=== PATIENT | female | born 1950 | race Caucasian/White ===

== ENCOUNTER 2021-06-11 17:48 | Inpatient (IN) ==
[2021-06-11] MEDS ORDERED: Naloxone 0.4 MG/ML INJ IVP PRN (21:43)
[2021-06-11] MEDS ORDERED: Acetaminophen 325 MG TABLET PO PRN (21:43)
[2021-06-11] MEDS ORDERED: Ketorolac 15 MG/ML VIAL IVP PRN (23:13)
[2021-06-11 23:50] LABS: Adenovirus Not Detected (Not Detect); Bordetella Pertussis Not Detected (Not Detect); Chlamydophila pneumoniae Not Detected (Not Detect); Coronavirus 229E Not Detected (Not Detect); Coronavirus HKU1 Not Detected (Not Detect); Coronavirus NL63 Not Detected (Not Detect); Coronavirus OC43 Not Detected (Not Detect); Human Metapneumovirus Not Detected (Not Detect); Human Rhinovirus/Enterovirus Not Detected (Not Detect); Influenza A Subtype 2009 H1 Not Detected (Not Detect); Influenza B Not Detected (Not Detect); Mycoplasma pneumoniae Not Detected (Not Detect); Parainfluenza Virus 1 Not Detected (Not Detect); Parainfluenza Virus 2 Not Detected (Not Detect); Parainfluenza Virus 3 Not Detected (Not Detect); Parainfluenza Virus 4 Not Detected (Not Detect); Respiratory Syncytial Virus Not Detected (Not Detect)
[2021-06-11 23:51] LABS: SARS-CoV-2 DETECTED (Not Detect)
[2021-06-12 02:48] LABS: Basophils % 0.5 %; Hematocrit 41.6 % (35.3-44.9); Hemoglobin 13.8 g/dL (11.5-15.4); Immature Granulocytes % 1.8 % (0-4); Lymphocytes % 22.1 %; Mean Corpuscular HGB Conc 33.2 g/dL (31.6-35.5); Mean Corpuscular Volume 90.4 fL (83.0-100.0); Mean Platelet Volume 11.7 fL (9.4-12.4); Monocytes # 0.4 K/mcL (0.0-1.3); Monocytes % 9.3 %; Neutrophils # 2.9 K/mcL (1.6-8.9); Platelet Count 195 K/mcL (140-400); Red Cell Distribution Width 13.4 % (11.5-14.5); Segmented Neutrophils % 66.3 %; White Blood Count 4.4 K/mcL (4.3-11.1)
[2021-06-12 03:10] LABS: Albumin 3.5 g/dL (3.5-5.7); Albumin/Globulin Ratio 1.3 (1.1-2.2); Bilirubin,Direct 0.4 mg/dL (0.0-0.2); Bilirubin,Indirect 0.2 mg/dL (0.0-1.0); Bilirubin,Total 0.6 mg/dL (0.3-1.0); Globulin 2.6 g/dL (2.4-3.5); Total Protein 6.1 g/dL (6.4-8.9)
[2021-06-12 03:26] LABS: Hepatitis B Surface Antigen Nonreactive (Nonreactive)
[2021-06-12 03:31] LABS: Platelet Estimate Normal (Normal); Poikilocytosis 1+ (Not Present)
[2021-06-12 03:38] LABS: Estimated Average Glucose 151 mg/dl; Hemoglobin A1C 6.9 %
[2021-06-12 03:41] LABS: BUN/Creatinine Ratio 44 (6-26); Blood Urea Nitrogen 33 mg/dL (8-23); C-Reactive Protein 41 mg/L (Less than 10); Calcium 7.9 mg/dL (8.6-10.3); Carbon Dioxide 13 mEq/L (23-29); Chloride 107 mEq/L (98-107); Cholesterol 123 mg/dL (< 200); Ferritin > 1500 ng/mL (10-120); Glucose 175 mg/dL (70-105); HDL Cholesterol 31 mg/dL (40-59); LDL Cholesterol,Calculated 55 mg/dL (< 100); Lactate Dehydrogenase 687 Units/L (140-271); Magnesium 1.9 mg/dL (1.6-2.6); Osmolality,Calculated 294 (280-300); Potassium 3.6 mEq/L (3.5-5.1); Sodium 136 mEq/L (136-145); Thyroid Stimulating Hormone 0.837 mcIU/mL (0.340-5.600); Triglycerides 183 mg/dL (< 150); Troponin I 0.04 ng/mL (< 0.04); eGFR For African Americans > 60 (> 60); eGFR For Non-African Americans > 60 (> 60)
[2021-06-12 03:55] LABS: Hepatitis C Virus Antibody Nonreactive (Nonreactive)
[2021-06-12 03:58] LABS: Hepatitis B Core IgM Nonreactive (Nonreactive)
[2021-06-12 03:59] LABS: Hepatitis A Antibody IgM Nonreactive (Nonreactive)
[2021-06-12] MEDS: Gabapentin 300 MG CAPSULE PO SCH ×4 (09:24→21:20)
[2021-06-12] MEDS: lisinopriL 20 MG TABLET PO SCH ×2 (09:25)
[2021-06-12] MEDS: *HR* Enoxaparin 40 MG/0.4 ML SYRINGE SQ SCH (09:25)
[2021-06-12] MEDS: amLODIPine 5 MG TABLET PO SCH ×2 (09:25)
[2021-06-12] MEDS: cefTRIAXone 1,000 MG in 0.9 % Sodium Chloride Mini Bag 100 ML IVPB SCH (09:26)
[2021-06-12] MEDS: Azithromycin 500 MG in 0.9 % Sodium Chloride 250 ML IVPB SCH (09:26)
[2021-06-12] MEDS: Ondansetron 4 MG/2 ML VIAL IVP PRN (11:57)
[2021-06-13 02:27] LABS: Basophils % 0.2 %; Eosinophils % 0.1 %; Hematocrit 43.2 % (35.3-44.9); Hemoglobin 14.5 g/dL (11.5-15.4); Immature Granulocytes % 1.2 % (0-4); Lymphocytes # 1.2 K/mcL (0.6-4.6); Lymphocytes % 15.2 %; Mean Corpuscular HGB Conc 33.6 g/dL (31.6-35.5); Mean Corpuscular Hemoglobin 30.1 pg (28.0-33.3); Mean Corpuscular Volume 89.8 fL (83.0-100.0); Mean Platelet Volume 11.5 fL (9.4-12.4); Monocytes # 0.3 K/mcL (0.0-1.3); Monocytes % 3.9 %; Neutrophils # 6.4 K/mcL (1.6-8.9); Platelet Count 224 K/mcL (140-400); Red Blood Count 4.81 M/mcL (3.82-4.97); Red Cell Distribution Width 13.6 % (11.5-14.5); Segmented Neutrophils % 79.4 %
[2021-06-13 07:01] LABS: Alanine Aminotransferase 174 Units/L (7-52); Albumin 3.4 g/dL (3.5-5.7); Albumin/Globulin Ratio 1.5 (1.1-2.2); Alkaline Phosphatase 85 Units/L (34-104); Aspartate Amino Transferase 446 Units/L (13-39); BUN/Creatinine Ratio 37 (6-26); Bilirubin,Direct 0.3 mg/dL (0.0-0.2); Bilirubin,Indirect 0.4 mg/dL (0.0-1.0); Bilirubin,Total 0.7 mg/dL (0.3-1.0); Blood Urea Nitrogen 31 mg/dL (8-23); Calcium 8.4 mg/dL (8.6-10.3); Carbon Dioxide 17 mEq/L (23-29); Chloride 109 mEq/L (98-107); Globulin 2.2 g/dL (2.4-3.5); Glucose 152 mg/dL (70-105); Osmolality,Calculated 294 (280-300); Sodium 137 mEq/L (136-145); Total Protein 5.6 g/dL (6.4-8.9); eGFR For African Americans > 60 (> 60); eGFR For Non-African Americans > 60 (> 60)
[2021-06-13] MEDS ORDERED: Isovue-370 500 ML BOTTLE IVP ONE (07:39)
[2021-06-13] MEDS: lisinopriL 20 MG TABLET PO SCH (07:55)
[2021-06-13] MEDS: Gabapentin 300 MG CAPSULE PO SCH ×3 (07:55→21:11)
[2021-06-13] MEDS: amLODIPine 5 MG TABLET PO SCH (07:55)
[2021-06-13] MEDS: Aspirin Enteric Coated 81 MG Tablet PO SCH (07:55)
[2021-06-13] MEDS: *HR* Enoxaparin 40 MG/0.4 ML SYRINGE SQ SCH (07:56)
[2021-06-13] MEDS: cefTRIAXone 1,000 MG in 0.9 % Sodium Chloride Mini Bag 100 ML IVPB SCH (07:57)
[2021-06-13 07:58] LABS: Platelet Estimate Normal (Normal)
[2021-06-13] MEDS: Azithromycin 500 MG in 0.9 % Sodium Chloride 250 ML IVPB SCH (08:20)
[2021-06-13] MEDS ORDERED: Dexamethasone Sodium Phos/PF 10 MG/ML VIAL IVP SCH (09:00)
[2021-06-14] MEDS: *HR* Enoxaparin 40 MG/0.4 ML SYRINGE SQ SCH (08:56)
[2021-06-14] MEDS: amLODIPine 5 MG TABLET PO SCH (08:56)
[2021-06-14] MEDS: lisinopriL 20 MG TABLET PO SCH (08:57)
[2021-06-14] MEDS: Aspirin Enteric Coated 81 MG Tablet PO SCH (08:57)
[2021-06-14] MEDS: Gabapentin 300 MG CAPSULE PO SCH ×3 (08:57→20:33)
[2021-06-14] MEDS: Furosemide 20 MG/2 ML VIAL IVP SCH (08:58)
[2021-06-14] MEDS: Dexamethasone Sodium Phos/PF 10 MG/ML VIAL IVP SCH (08:58)
[2021-06-14] MEDS: cefTRIAXone 1,000 MG in 0.9 % Sodium Chloride Mini Bag 100 ML IVPB SCH (09:27)
[2021-06-14 09:47] LABS: Hematocrit 39.8 % (35.3-44.9); Hemoglobin 13.1 g/dL (11.5-15.4); Mean Corpuscular HGB Conc 32.9 g/dL (31.6-35.5); Mean Corpuscular Hemoglobin 29.2 pg (28.0-33.3); Mean Corpuscular Volume 88.6 fL (83.0-100.0); Mean Platelet Volume 11.9 fL (9.4-12.4); Platelet Count 255 K/mcL (140-400); Red Blood Count 4.49 M/mcL (3.82-4.97); Red Cell Distribution Width 13.8 % (11.5-14.5); White Blood Count 10.3 K/mcL (4.3-11.1)
[2021-06-14] MEDS ORDERED: 0.9 % Sodium Chloride Mini Bag 100 ML ONE (10:01)
[2021-06-14 10:05] LABS: BUN/Creatinine Ratio 36 (6-26); Blood Urea Nitrogen 31 mg/dL (8-23); C-Reactive Protein 104 mg/L (Less than 10); Calcium 8.7 mg/dL (8.6-10.3); Carbon Dioxide 20 mEq/L (23-29); Chloride 109 mEq/L (98-107); Glucose 174 mg/dL (70-105); Lactate Dehydrogenase 573 Units/L (140-271); Osmolality,Calculated 299 (280-300); Potassium 3.7 mEq/L (3.5-5.1); Sodium 139 mEq/L (136-145); eGFR For African Americans > 60 (> 60); eGFR For Non-African Americans > 60 (> 60)
[2021-06-14 10:24] LABS: Ferritin > 1500 ng/mL (10-120)
[2021-06-14] MEDS: Azithromycin 500 MG in 0.9 % Sodium Chloride 250 ML IVPB SCH (11:49)
[2021-06-15] MEDS: Gabapentin 300 MG CAPSULE PO SCH ×3 (10:40→21:31)
[2021-06-15] MEDS: Aspirin Enteric Coated 81 MG Tablet PO SCH (10:40)
[2021-06-15] MEDS: amLODIPine 5 MG TABLET PO SCH (10:40)
[2021-06-15] MEDS: *HR* Enoxaparin 40 MG/0.4 ML SYRINGE SQ SCH (10:41)
[2021-06-15] MEDS: lisinopriL 20 MG TABLET PO SCH (10:41)
[2021-06-15] MEDS ORDERED: Haloperidol Lactate 5 MG/ML VIAL IVP PRN (11:51)
[2021-06-15] MEDS: cefTRIAXone 1,000 MG in 0.9 % Sodium Chloride Mini Bag 100 ML IVPB SCH (14:43)
[2021-06-15] MEDS: Dexamethasone Sodium Phos/PF 10 MG/ML VIAL IVP SCH (14:44)
[2021-06-15] MEDS: Furosemide 20 MG/2 ML VIAL IVP SCH (14:44)
[2021-06-15] MEDS: Acetaminophen 325 MG TABLET PO PRN (14:47)
[2021-06-15] MEDS: Azithromycin 500 MG in 0.9 % Sodium Chloride 250 ML IVPB SCH (17:01)
[2021-06-16] MEDS: Acetaminophen 325 MG TABLET PO PRN (01:03)
[2021-06-16 01:31] LABS: Hematocrit 42.2 % (35.3-44.9); Mean Corpuscular HGB Conc 33.2 g/dL (31.6-35.5); Mean Corpuscular Hemoglobin 29.2 pg (28.0-33.3); Mean Corpuscular Volume 87.9 fL (83.0-100.0); Platelet Count 290 K/mcL (140-400); Red Cell Distribution Width 13.4 % (11.5-14.5); White Blood Count 12.6 K/mcL (4.3-11.1)
[2021-06-16 02:00] LABS: BUN/Creatinine Ratio 51 (6-26); Blood Urea Nitrogen 42 mg/dL (8-23); C-Reactive Protein 29 mg/L (Less than 10); Calcium 8.4 mg/dL (8.6-10.3); Carbon Dioxide 16 mEq/L (23-29); Chloride 108 mEq/L (98-107); Glucose 300 mg/dL (70-105); Magnesium 2.1 mg/dL (1.6-2.6); Osmolality,Calculated 310 (280-300); Phosphorous 4.5 mg/dL (2.7-4.5); Potassium 3.5 mEq/L (3.5-5.1); Sodium 139 mEq/L (136-145); eGFR For African Americans > 60 (> 60); eGFR For Non-African Americans > 60 (> 60)
[2021-06-16 02:07] LABS: Ferritin 1246 ng/mL (10-120)
[2021-06-16] MEDS: lisinopriL 20 MG TABLET PO SCH (08:18)
[2021-06-16] MEDS: Aspirin Enteric Coated 81 MG Tablet PO SCH (08:18)
[2021-06-16] MEDS: amLODIPine 5 MG TABLET PO SCH (08:18)
[2021-06-16] MEDS: Ergocalciferol (VIT D2) 50,000 UNIT (1.25MG) CAP PO SCH (08:19)
[2021-06-16] MEDS: Gabapentin 300 MG CAPSULE PO SCH ×3 (08:19→20:40)
[2021-06-16] MEDS: Dexamethasone Sodium Phos/PF 10 MG/ML VIAL IVP SCH (08:20)
[2021-06-16] MEDS: Furosemide 20 MG/2 ML VIAL IVP SCH (08:20)
[2021-06-16] MEDS: *HR* Enoxaparin 40 MG/0.4 ML SYRINGE SQ SCH (08:20)
[2021-06-16] MEDS: Azithromycin 500 MG in 0.9 % Sodium Chloride 250 ML IVPB SCH (08:21)
[2021-06-16] MEDS: cefTRIAXone 1,000 MG in 0.9 % Sodium Chloride Mini Bag 100 ML IVPB SCH (08:22)
[2021-06-16] MEDS ORDERED: *HR* Enoxaparin 40 MG/0.4 ML SYRINGE SQ SCH (21:00)
[2021-06-17 02:30] LABS: Basophils # 0.1 K/mcL (0.0-0.2); Basophils % 0.7 %; Hematocrit 43.1 % (35.3-44.9); Hemoglobin 14.2 g/dL (11.5-15.4); Immature Granulocytes % 5.7 % (0-4); Lymphocytes # 0.9 K/mcL (0.6-4.6); Lymphocytes % 6.7 %; Mean Corpuscular HGB Conc 32.9 g/dL (31.6-35.5); Mean Corpuscular Hemoglobin 28.9 pg (28.0-33.3); Mean Corpuscular Volume 87.6 fL (83.0-100.0); Mean Platelet Volume 11.8 fL (9.4-12.4); Monocytes # 0.5 K/mcL (0.0-1.3); Monocytes % 3.6 %; Neutrophils # 10.8 K/mcL (1.6-8.9); Platelet Count 288 K/mcL (140-400); Red Blood Count 4.92 M/mcL (3.82-4.97); Red Cell Distribution Width 13.3 % (11.5-14.5); Segmented Neutrophils % 83.3 %; White Blood Count 12.9 K/mcL (4.3-11.1)
[2021-06-17 02:47] LABS: Alanine Aminotransferase 77 Units/L (7-52); Albumin 3.2 g/dL (3.5-5.7); Albumin/Globulin Ratio 1.3 (1.1-2.2); Alkaline Phosphatase 79 Units/L (34-104); Aspartate Amino Transferase 66 Units/L (13-39); BUN/Creatinine Ratio 60 (6-26); Bilirubin,Total 0.4 mg/dL (0.3-1.0); Blood Urea Nitrogen 48 mg/dL (8-23); Calcium 8.4 mg/dL (8.6-10.3); Carbon Dioxide 18 mEq/L (23-29); Chloride 109 mEq/L (98-107); Globulin 2.4 g/dL (2.4-3.5); Glucose 294 mg/dL (70-105); Osmolality,Calculated 309 (280-300); Potassium 3.6 mEq/L (3.5-5.1); Sodium 138 mEq/L (136-145); Total Protein 5.6 g/dL (6.4-8.9); eGFR For African Americans > 60 (> 60); eGFR For Non-African Americans > 60 (> 60)
[2021-06-17 03:30] LABS: Platelet Estimate Normal (Normal); Reactive Lymphocytes Present (Not Present)
[2021-06-17] MEDS ORDERED: Isovue-370 500 ML BOTTLE IVP ONE (07:30)
[2021-06-17] MEDS: amLODIPine 5 MG TABLET PO SCH (09:24)
[2021-06-17] MEDS: Aspirin Enteric Coated 81 MG Tablet PO SCH (09:24)
[2021-06-17] MEDS: lisinopriL 20 MG TABLET PO SCH (09:25)
[2021-06-17] MEDS: Gabapentin 300 MG CAPSULE PO SCH ×3 (09:25→20:01)
[2021-06-17] MEDS: Furosemide 20 MG/2 ML VIAL IVP SCH (09:26)
[2021-06-17] MEDS: *HR* Enoxaparin 80 MG/0.8 ML SYRINGE SQ SCH ×2 (09:26→21:02)
[2021-06-17] MEDS: cefTRIAXone 1,000 MG in 0.9 % Sodium Chloride Mini Bag 100 ML IVPB SCH (09:27)
[2021-06-17] MEDS: Dexamethasone Sodium Phos/PF 10 MG/ML VIAL IVP SCH (09:27)
[2021-06-18 02:09] LABS: Hematocrit 44.7 % (35.3-44.9); Hemoglobin 14.3 g/dL (11.5-15.4); Mean Corpuscular Hemoglobin 29.6 pg (28.0-33.3); Mean Corpuscular Volume 92.5 fL (83.0-100.0); Platelet Count 200 K/mcL (140-400); Red Blood Count 4.83 M/mcL (3.82-4.97); Red Cell Distribution Width 13.9 % (11.5-14.5); White Blood Count 12.7 K/mcL (4.3-11.1)
[2021-06-18 06:28] LABS: BUN/Creatinine Ratio 66 (6-26); Blood Urea Nitrogen 56 mg/dL (8-23); Calcium 8.8 mg/dL (8.6-10.3); Carbon Dioxide 21 mEq/L (23-29); Chloride 105 mEq/L (98-107); Glucose 280 mg/dL (70-105); Magnesium 2.2 mg/dL (1.6-2.6); Osmolality,Calculated 314 (280-300); Phosphorous 4.8 mg/dL (2.7-4.5); Potassium 3.8 mEq/L (3.5-5.1); Sodium 139 mEq/L (136-145); eGFR For African Americans > 60 (> 60); eGFR For Non-African Americans > 60 (> 60)
[2021-06-18 06:43] LABS: Ferritin 564 ng/mL (10-120)
[2021-06-18] MEDS: cefTRIAXone 1,000 MG in 0.9 % Sodium Chloride Mini Bag 100 ML IVPB SCH (09:13)
[2021-06-18] MEDS: Furosemide 20 MG/2 ML VIAL IVP SCH (09:14)
[2021-06-18] MEDS: *HR* Enoxaparin 80 MG/0.8 ML SYRINGE SQ SCH ×2 (09:14→20:51)
[2021-06-18] MEDS: amLODIPine 5 MG TABLET PO SCH (09:14)
[2021-06-18] MEDS: Dexamethasone Sodium Phos/PF 10 MG/ML VIAL IVP SCH (09:14)
[2021-06-18] MEDS: Aspirin Enteric Coated 81 MG Tablet PO SCH (09:14)
[2021-06-18] MEDS: lisinopriL 20 MG TABLET PO SCH (09:15)
[2021-06-18] MEDS: Gabapentin 300 MG CAPSULE PO SCH ×3 (09:15→20:50)
[2021-06-18 11:17] LABS: C-Reactive Protein 86 mg/L (Less than 10)
[2021-06-18] MEDS ORDERED: Haloperidol Lactate 5 MG/ML VIAL IVP PRN (16:33)
[2021-06-18] MEDS ORDERED: Menthol 1 EACH LOZENGE PO PRN (17:44)
[2021-06-19 06:50] LABS: Basophils # 0.1 K/mcL (0.0-0.2); Basophils % 0.5 %; Eosinophils % 0.1 %; Hematocrit 44.8 % (35.3-44.9); Hemoglobin 14.7 g/dL (11.5-15.4); Immature Granulocytes % 4.6 % (0-4); Lymphocytes % 6.6 %; Mean Corpuscular HGB Conc 32.8 g/dL (31.6-35.5); Mean Corpuscular Hemoglobin 28.8 pg (28.0-33.3); Mean Corpuscular Volume 87.8 fL (83.0-100.0); Mean Platelet Volume 12.2 fL (9.4-12.4); Monocytes # 0.2 K/mcL (0.0-1.3); Monocytes % 1.3 %; Neutrophils # 12.9 K/mcL (1.6-8.9); Platelet Count 283 K/mcL (140-400); Red Cell Distribution Width 13.4 % (11.5-14.5); Segmented Neutrophils % 86.9 %; White Blood Count 14.8 K/mcL (4.3-11.1)
[2021-06-19 07:04] LABS: Alanine Aminotransferase 60 Units/L (7-52); Albumin 3.3 g/dL (3.5-5.7); Albumin/Globulin Ratio 1.1 (1.1-2.2); Alkaline Phosphatase 79 Units/L (34-104); Aspartate Amino Transferase 43 Units/L (13-39); BUN/Creatinine Ratio 77 (6-26); Bilirubin,Total 0.5 mg/dL (0.3-1.0); Blood Urea Nitrogen 62 mg/dL (8-23); Calcium 8.8 mg/dL (8.6-10.3); Carbon Dioxide 23 mEq/L (23-29); Chloride 105 mEq/L (98-107); Glucose 273 mg/dL (70-105); Lactate Dehydrogenase 714 Units/L (140-271); Osmolality,Calculated 315 (280-300); Potassium 3.6 mEq/L (3.5-5.1); Sodium 139 mEq/L (136-145); Total Protein 6.3 g/dL (6.4-8.9); eGFR For African Americans > 60 (> 60); eGFR For Non-African Americans > 60 (> 60)
[2021-06-19 08:41] LABS: Ferritin 880 ng/mL (10-120)
[2021-06-19] MEDS: lisinopriL 20 MG TABLET PO SCH (08:45)
[2021-06-19] MEDS: Gabapentin 300 MG CAPSULE PO SCH ×3 (08:45→20:50)
[2021-06-19] MEDS: Furosemide 20 MG/2 ML VIAL IVP SCH (08:45)
[2021-06-19] MEDS: amLODIPine 5 MG TABLET PO SCH (08:45)
[2021-06-19] MEDS: Aspirin Enteric Coated 81 MG Tablet PO SCH (08:45)
[2021-06-19] MEDS: *HR* Enoxaparin 80 MG/0.8 ML SYRINGE SQ SCH ×2 (09:20→21:08)
[2021-06-19] MEDS: Acetaminophen 325 MG TABLET PO PRN (13:27)
[2021-06-19] MEDS ORDERED: Dextrose Gel 15 GM/37.5 ML TUBE PO PRN ×2 (16:34)
[2021-06-19] MEDS ORDERED: D5% in Water 1,000 ML IVC PRN (16:34)
[2021-06-19] MEDS ORDERED: *HR* Dextrose 50 % in Water (Vial) 50 ML VIAL IVP PRN (16:37)
[2021-06-19] MEDS: Insulin LISPRO 300 UNITS/3 ML VIAL SUBQ SCH ×2 (18:33→20:50)
[2021-06-19] MEDS ORDERED: Insulin DETEMIR 100 UNIT/ML X5UNITS SUBQ ONE (23:12)
[2021-06-20 05:21] LABS: Basophils % 0.3 %; Eosinophils # 0.1 K/mcL (0.0-0.6); Eosinophils % 0.3 %; Hematocrit 46.6 % (35.3-44.9); Hemoglobin 15.8 g/dL (11.5-15.4); Immature Granulocytes % 3.8 % (0-4); Lymphocytes # 0.9 K/mcL (0.6-4.6); Lymphocytes % 5.9 %; Mean Corpuscular HGB Conc 33.9 g/dL (31.6-35.5); Mean Corpuscular Hemoglobin 29.8 pg (28.0-33.3); Mean Corpuscular Volume 87.8 fL (83.0-100.0); Mean Platelet Volume 11.8 fL (9.4-12.4); Monocytes # 0.1 K/mcL (0.0-1.3); Monocytes % 0.8 %; Platelet Count 341 K/mcL (140-400); Red Blood Count 5.31 M/mcL (3.82-4.97); Red Cell Distribution Width 13.4 % (11.5-14.5); Segmented Neutrophils % 88.9 %; White Blood Count 14.6 K/mcL (4.3-11.1)
[2021-06-20 05:46] LABS: Alanine Aminotransferase 53 Units/L (7-52); Albumin 3.5 g/dL (3.5-5.7); Alkaline Phosphatase 84 Units/L (34-104); Aspartate Amino Transferase 44 Units/L (13-39); BUN/Creatinine Ratio 74 (6-26); Bilirubin,Total 0.6 mg/dL (0.3-1.0); Blood Urea Nitrogen 58 mg/dL (8-23); Calcium 9.2 mg/dL (8.6-10.3); Carbon Dioxide 26 mEq/L (23-29); Chloride 103 mEq/L (98-107); Globulin 3.5 g/dL (2.4-3.5); Glucose 178 mg/dL (70-105); Osmolality,Calculated 311 (280-300); Potassium 3.4 mEq/L (3.5-5.1); Sodium 140 mEq/L (136-145); eGFR For African Americans > 60 (> 60); eGFR For Non-African Americans > 60 (> 60)
[2021-06-20] MEDS ORDERED: Insulin LISPRO 300 UNITS/3 ML VIAL SUBQ SCH (07:30)
[2021-06-20] MEDS: Aspirin Enteric Coated 81 MG Tablet PO SCH (08:22)
[2021-06-20] MEDS: lisinopriL 20 MG TABLET PO SCH (08:22)
[2021-06-20] MEDS: amLODIPine 5 MG TABLET PO SCH (08:23)
[2021-06-20] MEDS: Gabapentin 300 MG CAPSULE PO SCH ×3 (08:23→20:17)
[2021-06-20] MEDS: Furosemide 20 MG/2 ML VIAL IVP SCH ×2 (08:24→10:41)
[2021-06-20] MEDS: Insulin LISPRO 300 UNITS/3 ML VIAL SUBQ SCH ×4 (08:31→20:50)
[2021-06-20] MEDS: *HR* Enoxaparin 80 MG/0.8 ML SYRINGE SQ SCH ×2 (10:41→20:17)
[2021-06-21 06:00] LABS: Basophils # 0.1 K/mcL (0.0-0.2); Basophils % 0.4 %; Eosinophils # 0.1 K/mcL (0.0-0.6); Eosinophils % 0.7 %; Hematocrit 49.2 % (35.3-44.9); Hemoglobin 16.1 g/dL (11.5-15.4); Immature Granulocytes % 1.9 % (0-4); Lymphocytes # 0.8 K/mcL (0.6-4.6); Lymphocytes % 6.5 %; Mean Corpuscular HGB Conc 32.7 g/dL (31.6-35.5); Mean Corpuscular Hemoglobin 29.8 pg (28.0-33.3); Mean Corpuscular Volume 90.9 fL (83.0-100.0); Mean Platelet Volume 12.7 fL (9.4-12.4); Monocytes # 0.1 K/mcL (0.0-1.3); Monocytes % 0.9 %; Neutrophils # 10.9 K/mcL (1.6-8.9); Platelet Count 255 K/mcL (140-400); Red Blood Count 5.41 M/mcL (3.82-4.97); Red Cell Distribution Width 13.7 % (11.5-14.5); Segmented Neutrophils % 89.6 %; White Blood Count 12.1 K/mcL (4.3-11.1)
[2021-06-21 06:25] LABS: Alanine Aminotransferase 42 Units/L (7-52); Albumin 3.3 g/dL (3.5-5.7); Alkaline Phosphatase 80 Units/L (34-104); Aspartate Amino Transferase 40 Units/L (13-39); BUN/Creatinine Ratio 84 (6-26); Bilirubin,Total 0.5 mg/dL (0.3-1.0); Blood Urea Nitrogen 71 mg/dL (8-23); Calcium 9.3 mg/dL (8.6-10.3); Carbon Dioxide 21 mEq/L (23-29); Chloride 105 mEq/L (98-107); Globulin 3.4 g/dL (2.4-3.5); Glucose 133 mg/dL (70-105); Lactate Dehydrogenase 706 Units/L (140-271); Osmolality,Calculated 313 (280-300); Potassium 4.1 mEq/L (3.5-5.1); Sodium 140 mEq/L (136-145); Total Protein 6.7 g/dL (6.4-8.9); eGFR For African Americans > 60 (> 60); eGFR For Non-African Americans > 60 (> 60)
[2021-06-21 06:36] LABS: Ferritin 1135 ng/mL (10-120)
[2021-06-21] MEDS: Insulin LISPRO 300 UNITS/3 ML VIAL SUBQ SCH ×4 (07:32→21:30)
[2021-06-21] MEDS: Furosemide 20 MG/2 ML VIAL IVP SCH (08:39)
[2021-06-21] MEDS: amLODIPine 5 MG TABLET PO SCH (08:39)
[2021-06-21] MEDS: lisinopriL 20 MG TABLET PO SCH (08:39)
[2021-06-21] MEDS: Gabapentin 300 MG CAPSULE PO SCH ×3 (08:40→21:11)
[2021-06-21] MEDS: *HR* Enoxaparin 80 MG/0.8 ML SYRINGE SQ SCH ×2 (08:40→21:30)
[2021-06-21] MEDS: Aspirin Enteric Coated 81 MG Tablet PO SCH (08:40)
[2021-06-21] MEDS ORDERED: Dexmedetomidine HCl 400 MCG/100 ML MLS IVC SCH (09:30)
[2021-06-21] MEDS ORDERED: 0.9 % Sodium Chloride 250 ML IVC ONE ×2 (22:14→23:20)
[2021-06-22 01:52] LABS: Basophils % 0.3 %; Hematocrit 41.5 % (35.3-44.9); Immature Granulocytes % 1.2 % (0-4); Lymphocytes # 0.6 K/mcL (0.6-4.6); Mean Corpuscular HGB Conc 32.8 g/dL (31.6-35.5); Mean Corpuscular Hemoglobin 29.3 pg (28.0-33.3); Mean Corpuscular Volume 89.4 fL (83.0-100.0); Mean Platelet Volume 12.7 fL (9.4-12.4); Monocytes # 0.1 K/mcL (0.0-1.3); Neutrophils # 9.7 K/mcL (1.6-8.9); Platelet Count 251 K/mcL (140-400); Red Blood Count 4.64 M/mcL (3.82-4.97); Red Cell Distribution Width 13.5 % (11.5-14.5); Segmented Neutrophils % 91.5 %; White Blood Count 10.6 K/mcL (4.3-11.1)
[2021-06-22 02:00] LABS: Hemoglobin 13.6 g/dL (11.5-15.4)
[2021-06-22 02:05] LABS: Alanine Aminotransferase 31 Units/L (7-52); Albumin 2.8 g/dL (3.5-5.7); Alkaline Phosphatase 63 Units/L (34-104); Aspartate Amino Transferase 26 Units/L (13-39); BUN/Creatinine Ratio 99 (6-26); Bilirubin,Total 0.4 mg/dL (0.3-1.0); Blood Urea Nitrogen 83 mg/dL (8-23); Calcium 8.3 mg/dL (8.6-10.3); Carbon Dioxide 20 mEq/L (23-29); Chloride 109 mEq/L (98-107); Globulin 2.9 g/dL (2.4-3.5); Glucose 163 mg/dL (70-105); Osmolality,Calculated 319 (280-300); Potassium 3.9 mEq/L (3.5-5.1); Sodium 140 mEq/L (136-145); Total Protein 5.7 g/dL (6.4-8.9); eGFR For African Americans > 60 (> 60); eGFR For Non-African Americans > 60 (> 60)
[2021-06-22] MEDS: Aspirin Enteric Coated 81 MG Tablet PO SCH (07:57)
[2021-06-22] MEDS: Gabapentin 300 MG CAPSULE PO SCH ×3 (07:57→20:42)
[2021-06-22] MEDS: Insulin LISPRO 300 UNITS/3 ML VIAL SUBQ SCH ×4 (07:58→21:10)
[2021-06-22] MEDS: *HR* Enoxaparin 80 MG/0.8 ML SYRINGE SQ SCH ×2 (07:59→20:43)
[2021-06-22] MEDS ORDERED: *HR* LORazepam 2 MG/ML VIAL IVP ONE (12:00)
[2021-06-23 05:04] LABS: Basophils % 0.1 %; Eosinophils % 0.1 %; Hematocrit 43.5 % (35.3-44.9); Hemoglobin 14.1 g/dL (11.5-15.4); Immature Granulocytes % 1.5 % (0-4); Lymphocytes # 0.6 K/mcL (0.6-4.6); Mean Corpuscular HGB Conc 32.4 g/dL (31.6-35.5); Mean Corpuscular Hemoglobin 28.7 pg (28.0-33.3); Mean Corpuscular Volume 88.6 fL (83.0-100.0); Mean Platelet Volume 12.8 fL (9.4-12.4); Monocytes # 0.1 K/mcL (0.0-1.3); Neutrophils # 12.7 K/mcL (1.6-8.9); Platelet Count 304 K/mcL (140-400); Red Blood Count 4.91 M/mcL (3.82-4.97); Red Cell Distribution Width 13.4 % (11.5-14.5); Segmented Neutrophils % 93.3 %; White Blood Count 13.6 K/mcL (4.3-11.1)
[2021-06-23 05:26] LABS: Alanine Aminotransferase 36 Units/L (7-52); Alkaline Phosphatase 93 Units/L (34-104); Aspartate Amino Transferase 32 Units/L (13-39); BUN/Creatinine Ratio 100 (6-26); Bilirubin,Total 0.5 mg/dL (0.3-1.0); Blood Urea Nitrogen 64 mg/dL (8-23); Calcium 8.9 mg/dL (8.6-10.3); Carbon Dioxide 19 mEq/L (23-29); Chloride 105 mEq/L (98-107); Globulin 3.1 g/dL (2.4-3.5); Glucose 214 mg/dL (70-105); Lactate Dehydrogenase 645 Units/L (140-271); Osmolality,Calculated 305 (280-300); Potassium 4.3 mEq/L (3.5-5.1); Sodium 135 mEq/L (136-145); Total Protein 6.1 g/dL (6.4-8.9); eGFR For African Americans > 60 (> 60); eGFR For Non-African Americans > 60 (> 60)
[2021-06-23 05:41] LABS: Ferritin 1086 ng/mL (10-120)
[2021-06-23] MEDS: Insulin LISPRO 300 UNITS/3 ML VIAL SUBQ SCH ×4 (10:07→22:13)
[2021-06-23] MEDS: Gabapentin 300 MG CAPSULE PO SCH ×3 (10:49→20:36)
[2021-06-23] MEDS: Ergocalciferol (VIT D2) 50,000 UNIT (1.25MG) CAP PO SCH (10:49)
[2021-06-23] MEDS: Aspirin Enteric Coated 81 MG Tablet PO SCH (10:49)
[2021-06-23] MEDS: *HR* Enoxaparin 80 MG/0.8 ML SYRINGE SQ SCH ×2 (10:50→20:36)
[2021-06-23] MEDS: Furosemide 20 MG/2 ML VIAL IVP SCH (17:01)
[2021-06-24] MEDS: Aspirin Enteric Coated 81 MG Tablet PO SCH (08:22)
[2021-06-24] MEDS: *HR* Enoxaparin 80 MG/0.8 ML SYRINGE SQ SCH ×2 (08:22→21:09)
[2021-06-24] MEDS: Gabapentin 300 MG CAPSULE PO SCH ×3 (08:23→21:09)
[2021-06-24] MEDS: Furosemide 20 MG/2 ML VIAL IVP SCH (08:23)
[2021-06-24] MEDS: Insulin LISPRO 300 UNITS/3 ML VIAL SUBQ SCH ×4 (08:25→21:09)
[2021-06-25 02:31] LABS: Basophils % 0.1 %; Hematocrit 41.7 % (35.3-44.9); Hemoglobin 13.7 g/dL (11.5-15.4); Immature Granulocytes % 1.7 % (0-4); Lymphocytes # 0.7 K/mcL (0.6-4.6); Lymphocytes % 4.4 %; Mean Corpuscular HGB Conc 32.9 g/dL (31.6-35.5); Mean Corpuscular Volume 88.3 fL (83.0-100.0); Mean Platelet Volume 12.7 fL (9.4-12.4); Monocytes # 0.1 K/mcL (0.0-1.3); Monocytes % 0.7 %; Neutrophils # 15.2 K/mcL (1.6-8.9); Platelet Count 286 K/mcL (140-400); Red Blood Count 4.72 M/mcL (3.82-4.97); Red Cell Distribution Width 13.2 % (11.5-14.5); Segmented Neutrophils % 93.1 %; White Blood Count 16.3 K/mcL (4.3-11.1)
[2021-06-25 02:48] LABS: Alanine Aminotransferase 40 Units/L (7-52); Albumin 2.5 g/dL (3.5-5.7); Albumin/Globulin Ratio 0.8 (1.1-2.2); Alkaline Phosphatase 98 Units/L (34-104); Aspartate Amino Transferase 27 Units/L (13-39); BUN/Creatinine Ratio 92 (6-26); Bilirubin,Total 0.4 mg/dL (0.3-1.0); Blood Urea Nitrogen 54 mg/dL (8-23); Calcium 8.3 mg/dL (8.6-10.3); Carbon Dioxide 24 mEq/L (23-29); Chloride 105 mEq/L (98-107); Glucose 183 mg/dL (70-105); Osmolality,Calculated 303 (280-300); Sodium 137 mEq/L (136-145); Total Protein 5.5 g/dL (6.4-8.9); eGFR For African Americans > 60 (> 60); eGFR For Non-African Americans > 60 (> 60)
[2021-06-25] MEDS: *HR* Enoxaparin 80 MG/0.8 ML SYRINGE SQ SCH ×2 (08:20→22:43)
[2021-06-25] MEDS: Insulin LISPRO 300 UNITS/3 ML VIAL SUBQ SCH ×4 (08:20→21:15)
[2021-06-25] MEDS: Furosemide 20 MG/2 ML VIAL IVP SCH (08:21)
[2021-06-25] MEDS: Gabapentin 300 MG CAPSULE PO SCH ×3 (08:22→22:43)
[2021-06-25] MEDS: Aspirin Enteric Coated 81 MG Tablet PO SCH (08:22)
[2021-06-26 02:28] LABS: Basophils % 0.1 %; Eosinophils % 0.1 %; Hematocrit 40.9 % (35.3-44.9); Hemoglobin 13.9 g/dL (11.5-15.4); Immature Granulocytes % 1.6 % (0-4); Lymphocytes # 0.6 K/mcL (0.6-4.6); Lymphocytes % 3.8 %; Mean Corpuscular Hemoglobin 29.8 pg (28.0-33.3); Mean Corpuscular Volume 87.6 fL (83.0-100.0); Mean Platelet Volume 13.3 fL (9.4-12.4); Monocytes # 0.1 K/mcL (0.0-1.3); Monocytes % 0.8 %; Neutrophils # 14.5 K/mcL (1.6-8.9); Platelet Count 253 K/mcL (140-400); Red Blood Count 4.67 M/mcL (3.82-4.97); Red Cell Distribution Width 13.2 % (11.5-14.5); Segmented Neutrophils % 93.6 %; White Blood Count 15.5 K/mcL (4.3-11.1)
[2021-06-26 02:53] LABS: BUN/Creatinine Ratio 81 (6-26); Blood Urea Nitrogen 55 mg/dL (8-23); Calcium 8.8 mg/dL (8.6-10.3); Carbon Dioxide 23 mEq/L (23-29); Chloride 102 mEq/L (98-107); Glucose 242 mg/dL (70-105); Osmolality,Calculated 301 (280-300); Platelet Estimate Normal (Normal); Potassium 4.2 mEq/L (3.5-5.1); Sodium 134 mEq/L (136-145); eGFR For African Americans > 60 (> 60); eGFR For Non-African Americans > 60 (> 60)
[2021-06-26] MEDS: Aspirin Enteric Coated 81 MG Tablet PO SCH (09:10)
[2021-06-26] MEDS: Gabapentin 300 MG CAPSULE PO SCH ×3 (09:10→20:52)
[2021-06-26] MEDS: Furosemide 20 MG/2 ML VIAL IVP SCH (09:11)
[2021-06-26] MEDS: *HR* Enoxaparin 80 MG/0.8 ML SYRINGE SQ SCH ×2 (09:12→20:52)
[2021-06-26] MEDS: Insulin LISPRO 300 UNITS/3 ML VIAL SUBQ SCH ×4 (09:23→20:55)
[2021-06-27 07:56] LABS: Basophils % 0.2 %
[2021-06-27 08:06] LABS: BUN/Creatinine Ratio 95 (6-26); Blood Urea Nitrogen 55 mg/dL (8-23); Calcium 9.2 mg/dL (8.6-10.3); Carbon Dioxide 24 mEq/L (23-29); Chloride 100 mEq/L (98-107); Glucose 207 mg/dL (70-105); Osmolality,Calculated 297 (280-300); Potassium 4.2 mEq/L (3.5-5.1); Sodium 133 mEq/L (136-145); eGFR For African Americans > 60 (> 60); eGFR For Non-African Americans > 60 (> 60)
[2021-06-27] MEDS: Aspirin Enteric Coated 81 MG Tablet PO SCH (08:37)
[2021-06-27] MEDS: Furosemide 20 MG/2 ML VIAL IVP SCH (08:38)
[2021-06-27] MEDS: Insulin LISPRO 300 UNITS/3 ML VIAL SUBQ SCH ×4 (08:38→21:32)
[2021-06-27] MEDS: Gabapentin 300 MG CAPSULE PO SCH ×3 (08:38→21:32)
[2021-06-27] MEDS: *HR* Enoxaparin 80 MG/0.8 ML SYRINGE SQ SCH ×2 (08:45→21:32)
[2021-06-27 09:54] LABS: Eosinophils % 0.3 %; Monocytes % 0.6 %; Red Cell Distribution Width 13.4 % (11.5-14.5)
[2021-06-27 09:56] LABS: Eosinophils # 0.1 K/mcL (0.0-0.6); Hemoglobin 14.2 g/dL (11.5-15.4); Immature Granulocytes % 1.5 % (0-4); Immature Platelets 14.1 % (1.1-6.1); Lymphocytes # 0.8 K/mcL (0.6-4.6); Lymphocytes % 4.4 %; Mean Corpuscular HGB Conc 32.3 g/dL (31.6-35.5); Mean Corpuscular Hemoglobin 28.9 pg (28.0-33.3); Mean Corpuscular Volume 89.6 fL (83.0-100.0); Mean Platelet Volume 13.6 fL (9.4-12.4); Monocytes # 0.1 K/mcL (0.0-1.3); Platelet Count 254 K/mcL (140-400); Red Blood Count 4.91 M/mcL (3.82-4.97); White Blood Count 17.7 K/mcL (4.3-11.1)
[2021-06-27 09:58] LABS: Neutrophils # 16.5 K/mcL (1.6-8.9)
[2021-06-28] MEDS ORDERED: Ringers Solution, Lactated 500 ML IVC ONE ×2 (00:33→23:02)
[2021-06-28 02:05] LABS: Basophils % 0.1 %; Eosinophils % 0.2 %; Hematocrit 38.1 % (35.3-44.9); Hemoglobin 12.7 g/dL (11.5-15.4); Immature Granulocytes % 2.3 % (0-4); Lymphocytes # 0.8 K/mcL (0.6-4.6); Lymphocytes % 5.3 %; Mean Corpuscular HGB Conc 33.3 g/dL (31.6-35.5); Mean Corpuscular Hemoglobin 29.6 pg (28.0-33.3); Mean Corpuscular Volume 88.8 fL (83.0-100.0); Mean Platelet Volume 12.8 fL (9.4-12.4); Monocytes # 0.2 K/mcL (0.0-1.3); Neutrophils # 13.5 K/mcL (1.6-8.9); Platelet Count 242 K/mcL (140-400); Red Blood Count 4.29 M/mcL (3.82-4.97); Red Cell Distribution Width 13.3 % (11.5-14.5); Segmented Neutrophils % 91.1 %; White Blood Count 14.8 K/mcL (4.3-11.1)
[2021-06-28 02:36] LABS: BUN/Creatinine Ratio 113 (6-26); Blood Urea Nitrogen 51 mg/dL (8-23); Calcium 6.7 mg/dL (8.6-10.3); Carbon Dioxide 18 mEq/L (23-29); Chloride 110 mEq/L (98-107); Glucose 148 mg/dL (70-105); Osmolality,Calculated 300 (280-300); Potassium 3.1 mEq/L (3.5-5.1); Sodium 137 mEq/L (136-145); eGFR For African Americans > 60 (> 60); eGFR For Non-African Americans > 60 (> 60)
[2021-06-28] MEDS ORDERED: 0.9 % Sodium Chloride 500 ML IVC ONE (08:47)
[2021-06-28] MEDS: *HR* Enoxaparin 80 MG/0.8 ML SYRINGE SQ SCH ×2 (10:00→22:25)
[2021-06-28] MEDS ORDERED: *HR* LORazepam 2 MG/ML VIAL IVP ONE (10:10)
[2021-06-28] MEDS: Insulin LISPRO 300 UNITS/3 ML VIAL SUBQ SCH ×4 (10:15→22:28)
[2021-06-28] MEDS: Aspirin Enteric Coated 81 MG Tablet PO SCH (10:23)
[2021-06-28] MEDS: Gabapentin 300 MG CAPSULE PO SCH ×3 (10:23→22:25)
[2021-06-28] MEDS: Acetaminophen 325 MG TABLET PO PRN (10:23)
[2021-06-28] MEDS: Ondansetron 4 MG/2 ML VIAL IVP PRN (22:16)
[2021-06-28] MEDS ORDERED: Acetaminophen IV 500 MG/50 ML BAG IVPB ONE (22:48)
[2021-06-28] MEDS ORDERED: Albumin 25% 25gram/100mL 25 GM/100 ML IV.SOLN IVPB ONE (23:41)
[2021-06-29] MEDS: Norepinephrine 4 MG/254 ML IV.SOLN IVC SCH ×3 (00:56→08:48)
[2021-06-29] MEDS ORDERED: Dexmedetomidine HCl 400 MCG/100 ML MLS IVC ONE (02:13)
[2021-06-29] MEDS: Dexmedetomidine HCl 400 MCG/100 ML MLS IVC SCH ×2 (02:14→02:41)
[2021-06-29] MEDS ORDERED: Ringers Solution, Lactated 1,000 ML IVC ONE (02:15)
[2021-06-29 02:39] LABS: VBG Ionized Calcium 1.21 mmol/L (1.15-1.35)
[2021-06-29 02:51] LABS: Basophils # 0.1 K/mcL (0.0-0.2); Basophils % 0.3 %; Eosinophils # 0.2 K/mcL (0.0-0.6); Hematocrit 44.4 % (35.3-44.9); Lymphocytes # 1.3 K/mcL (0.6-4.6); Lymphocytes % 5.4 %; Mean Corpuscular HGB Conc 32.2 g/dL (31.6-35.5); Mean Corpuscular Hemoglobin 29.4 pg (28.0-33.3); Mean Corpuscular Volume 91.4 fL (83.0-100.0); Mean Platelet Volume 12.9 fL (9.4-12.4); Monocytes # 0.3 K/mcL (0.0-1.3); Monocytes % 1.4 %; Neutrophils # 21.7 K/mcL (1.6-8.9); Nucleated Red Blood Cells 0.1 /100 WBC (0); Platelet Count 301 K/mcL (140-400); Red Blood Count 4.86 M/mcL (3.82-4.97); Red Cell Distribution Width 13.6 % (11.5-14.5); Segmented Neutrophils % 90.9 %
[2021-06-29 02:54] LABS: Hemoglobin 14.3 g/dL (11.5-15.4); White Blood Count 23.9 K/mcL (4.3-11.1)
[2021-06-29 02:56] LABS: Albumin 3.4 g/dL (3.5-5.7); Albumin/Globulin Ratio 1.1 (1.1-2.2); Bilirubin,Total 1.2 mg/dL (0.3-1.0); Calcium 9.2 mg/dL (8.6-10.3); Globulin 3.2 g/dL (2.4-3.5); Magnesium 1.8 mg/dL (1.6-2.6); Phosphorous 5.3 mg/dL (2.7-4.5); Potassium 4.9 mEq/L (3.5-5.1); Total Protein 6.6 g/dL (6.4-8.9)
[2021-06-29] MEDS ORDERED: Vancomycin 1,250 MG/262.5 ML IV.SOLN IVPB ONE (03:00)
[2021-06-29] MEDS ORDERED: 0.9 % Sodium Chloride 1,000 ML IVC ONE (03:07)
[2021-06-29] MEDS ORDERED: Dexamethasone Sodium Phos/PF 10 MG/ML VIAL IVP ONE (03:30)
[2021-06-29] MEDS ORDERED: Piperacillin/Tazobactam 3.375 GM in 0.9 % Sodium Chloride Mini Bag 100 ML IVPB SCH (08:00)
[2021-06-29] MEDS: *HR* Enoxaparin 80 MG/0.8 ML SYRINGE SQ SCH (08:18)
[2021-06-29] MEDS: Aspirin Enteric Coated 81 MG Tablet PO SCH (08:20)
[2021-06-29] MEDS: Insulin LISPRO 300 UNITS/3 ML VIAL SUBQ SCH ×2 (08:29→13:23)
[2021-06-29 08:41] VITALS: TEMP 97.8
[2021-06-29 09:11] LABS: BUN/Creatinine Ratio 54 (6-26); Blood Urea Nitrogen 56 mg/dL (8-23); Calcium 8.3 mg/dL (8.6-10.3); Carbon Dioxide 18 mEq/L (23-29); Chloride 106 mEq/L (98-107); Glucose 232 mg/dL (70-105); Magnesium 2.2 mg/dL (1.6-2.6); Osmolality,Calculated 305 (280-300); Phosphorous 5.5 mg/dL (2.7-4.5); Potassium 4.8 mEq/L (3.5-5.1); Sodium 136 mEq/L (136-145); eGFR For African Americans > 60 (> 60); eGFR For Non-African Americans 53 (> 60)
[2021-06-29 09:32] LABS: VBG Ionized Calcium 1.12 mmol/L (1.15-1.35)
[2021-06-29] MEDS: Gabapentin 300 MG CAPSULE PO SCH ×2 (09:56→13:23)
[2021-06-29 11:55] VITALS: BP 102/77
[2021-06-29] MEDS ORDERED: *HR* FentaNYL (PF) 100 MCG/2 ML VIAL IVP PRN (13:38)
[2021-06-29] MEDS ORDERED: Atropine 1% Opth Drops 100 DROP/5 ML BOTTLE SL PRN (13:39)
[2021-06-29] MEDS ORDERED: *HR* LORazepam 2 MG/ML VIAL IVP PRN (13:40)
[2021-06-29] MEDS ORDERED: Haloperidol Lactate 5 MG/ML VIAL IVP PRN (13:41)
[2021-06-29 15:44] VITALS: PULSE 112; O2SAT 75
[2021-06-29 22:30] LABS: Acinetobacter baumannii by PCR Not Detected (Not Detect); Enterobacter cloacae Cmplx PCR Not Detected (Not Detect); Enterobacteriaceae by PCR Not Detected (Not Detect); Enterococcus by PCR Not Detected (Not Detect); Escherichia coli by PCR Not Detected (Not Detect); Klebsiella oxytoca by PCR Not Detected (Not Detect); Klebsiella pneumoniae by PCR Not Detected (Not Detect); Proteus by PCR Not Detected (Not Detect); Serratia marcescens by PCR Not Detected (Not Detect); Staphylococcus aureus by PCR Not Detected (Not Detect); Staphylococcus by PCR Not Detected (Not Detect); Streptococcus agalactiae(B)PCR Not Detected (Not Detect); Streptococcus by PCR Not Detected (Not Detect); Streptococcus pneumoniae PCR Not Detected (Not Detect); Streptococcus pyogenes (A) PCR Not Detected (Not Detect); mecA Methicillin-Resist Gene Not Detected (Not Detect); vanA/B Vancomycin-Resist Genes Not Detected (Not Detect)
[2021-06-29 22:31] LABS: Candida albicans by PCR Not Detected (Not Detect); Candida glabrata by PCR Not Detected (Not Detect); Candida krusei by PCR Not Detected (Not Detect); Candida parapsilosis by PCR Not Detected (Not Detect); Candida tropicalis by PCR Not Detected (Not Detect); Pseudomonas aeruginosa by PCR DETECTED (Not Detect)
[2021-06-30 08:22] LABS: ABG Base Excess -2 mEq/L (-2 to 3); ABG HCO3 24 mEq/L (21-27); ABG Oxygen Saturation 88 % (95-98); ABG PCO2 41 mmHg (35-45); ABG PH 7.37 pH Units (7.32-7.45); ABG PO2 57 mmHg (85-104); ABG TCO2 25 mEq/L (20-26)
== END 2021-06-29 22:40 | disposition expired | DRG 177 ==
LOC: 3BNU → SUATTDRO 06-12 14:14 → 2NENU 06-13 19:34 → 2NNU 06-29 00:43
PROVIDERS: ADMIT Internal Medicine; ATTEND Family Medicine